=== PATIENT | female | born 1985 | race Caucasian/White ===

== ENCOUNTER 2023-10-09 02:45 | Emergency (ER) | payer BC, SELFPAY ==
--- NOTE | ~2023-10-09 | CT_ITS ---
EXAMINATION: CT abdomen pelvis wo con DATE: 10/09/2023 04:08 INDICATION: Flank pain. TECHNIQUE: Computed tomography (CT) of the abdomen and pelvis was performed without intravenous contr ast. Automated exposure control and iterative reconstruction technique were employed. The dose-length product was 227.50 mGy-cm. COMPARISON: None. FINDINGS: The visualized portions of the lung bases are clear without pneumonia or pleural effusion. The heart size is normal. No pericardial effusion. The liver, gallbladder, spleen, pancreas, and adre nal glands are normal. There is a 3 mm stone in right kidney. There is mild left hydronephrosis and h ydroureter. There is a 3 mm stone in distal left ureter. There are no dilated loops of bowel. The isidra endix is normal. There are no pathologically enlarged lymph nodes. There is no free intraperitoneal f luid. There is a 2.0 cm mixed lytic and sclerotic lesion in the left ischium with endosteal scallopin g. There is moderate lower lumbar spondylosis. IMPRESSION: 1. 3 mm stone in distal left ureter with mild left hydronephrosis and hydroureter. 2. Small nonobstructing right kidney stone. 3. 2.0 cm bone lesion in left ischium, most likely a benign lesion such as aneurysmal bone cyst or fi brous dysplasia. Reviewed, dictated and finalized at location E. ER GRIND TOOL TECHNICIAN IMPRESSION: 1. 3 mm stone in distal left ureter with mild left hydronephrosis and hydrouret er. 2. Small nonobstructing right kidney stone. 3. 2.0 cm bone lesion in left ischium, most likely a benign lesion such as aneu rysmal bone cyst or fibrous dysplasia.
--- NOTE | ~2023-10-09 | US_ITS ---
EXAMINATION: US pelvic complete DATE: 10/09/2023 06:08 INDICATION: Left pelvic pain. TECHNIQUE: Multiple transabdominal sonographic images of the pelvis were obtained. COMPARISON: CT abdomen and pelvis 10/09/2023 FINDINGS: The uterus measures 7.4 x 4.2 x 4.9 cm. There is no free fluid in the pelvis. The endometrial complex measures 15 mm in thickness. The right ovary measures 3.8 x 1.2 x 2.1 cm. The left ovary measures 3. 0 x 2.3 x 2.3 cm. There is normal vascular flow in the ovaries. IMPRESSION: 1. Normal pelvis. Reviewed, dictated and finalized at location E. OR ACCOUNT EXECUTIVE IMPRESSION: 1. Normal pelvis.
[2023-10-09 02:45] VITALS: BP 121/88; PULSE 81; RESP 15; TEMP 36.5; O2SAT 100
[2023-10-09 03:08] LABS: Basophils Percent Auto 0.5 % (0.2-1.2); Eosinophils Absolute Auto 0.1 K/mm3 (0-0.3); Eosinophils Percent Auto 1.1 % (0-4.4); Hematocrit 37.2 % (37.0-47.0); Hemoglobin 12.3 g/dL (12.0-15.0); Immature Granulocyte Absolute 0.01 K/mm3 (0.00-0.031); Immature Granulocyte Percent A 0.2 % (0-0.5); Lymphocytes Absolute Auto 1.73 K/mm3 (0.9-3.2); Mean Corpuscular HGB Conc 33.1 g/dl (32-36); Mean Corpuscular Hemoglobin 28.5 pg (26-34); Mean Corpuscular Volume 86.1 fl (80-100); Mean Platelet Volume 10.3 fl (7.4-10.4); Monocytes Absolute Auto 0.5 K/mm3 (0.1-0.6); Monocytes Percent Auto 7.2 % (2.6-8.5); Neutrophils Absolute Auto 4.3 K/mm3 (1.3-6.7); Platelet Count Result 204 k/mm3 (150-375); Red Blood Count 4.32 M/mm3 (4.2-5.4); Red Cell Distribution Width 13.2 % (11.5-14.5); White Blood Count 6.7 K/mm3 (4.5-10.0)
[2023-10-09 03:20] LABS: Alanine Aminotransferase 18 U/L (6-35); Albumin Level 4.2 g/dL (3.5-5.1); Alkaline Phosphatase 74 U/L (38-126); Anion Gap 8 mmol/L (8-16); Aspartate Amino Transferase 23 U/L (14-36); Bilirubin,Total 0.4 mg/dL (0.2-1.3); Blood Urea Nitrogen 15 mg/dL (7-17); Calcium 9.2 mg/dL (8.4-10.2); Carbon Dioxide 22 mmol/L (22-30); Chloride 106 mmol/L (98-107); Estimated CRCL calculation 78 ml/min; Estimated Glomerular Filt Rate > 60; Glucose 158 mg/dL (65-110); Potassium 3.5 mmol/L (3.4-5.0); Sodium 136 mmol/L (137-145)
[2023-10-09] MEDS: KETOROLAC 15 MG/ML VIAL (*BKC) IV PUSH (03:37)
[2023-10-09] MEDS: SODIUM CHLORIDE 0.9% IV 1,000 ML 999 ML IV CONT (03:37)
--- NOTE | 2023-10-09 03:43 | ED.ABDPAIN ---
HPI - Abdominal Pain General Chief Complaint: Abdominal Pain Stated Complaint: l flank pain Time Seen by Provider: 10/09/23 03:38 Source: patient Limitations: no limitations History of Present Illness HPI narrative: Patient is a 38-year-old female presents to the emergency department complaining of left flank pain. Patient states the pain started around 1:00 a.m. last night, feels like an ache, constant and waxes and wanes, feels like her history of a kidney stone, radiates to her left groin, tried an ibuprofen for the pain with minimal relief. Patient admits to associated nausea. Patient denies chest pain, difficulty breathing, cough, fever, hematuria, diarrhea, melena, hematochezia, recent injuries, recent illness. Patient's her last menstrual period was September 12. Patient denies vaginal discharge or history of sexually transmitted infections. Patient has not noticed anything making her pain better or worse. Patient admits to some mild dysuria. Related Data Allergies Allergy/AdvReac Type Severity Reaction Status Date / Time No Known Allergies Allergy Verified 10/09/23 02:52 Review of Systems Review of Systems: A 10 system review of systems was completed on the patient and is negative except for what is stated in the HPI. Nursing and ancillary documentation was reviewed. PMFSH Comments At time of signature, I have reviewed and agree with nursing past medical, surgical, social and family history unless otherwise noted. Please see the nursing chart for further information. There is no relevant family history pertinent to the presenting complaint. Exam Narrative: CONST: Mild acute distress complaining of left flank pain. Well nourished. Patient became nauseous during the examination began having nonbloody nonbilious scant amount of emesis. HENMT: Head is normocephalic and atraumatic. Moist mucous membranes. No posterior oropharynx erythema. EYES: No conjunctival icterus, injection, or pallor. PERRL. NECK: No meningeal signs. RESP: Able to speak in full sentences. Normal respiratory effort. CTAB. CARDIO: Regular rate. Regular rhythm. 2+ DP and radial pulses bilaterally. GI: Nondistended. No tenderness to palpation. Soft. Negative Hannah sign. No palpable masses or hernias. : No CVA tenderness to palpation. SKIN: No rashes or lesions noted on exposed skin. NEURO: Oriented x3. Moves all extremities. EXTREM/MSK/BACK: No pedal edema. PSYCH: Normal affect. Course Vital Signs Vital signs: Vital Signs Temperature 97.7 F 10/09/23 02:45 Pulse Rate 81 10/09/23 02:45 Respiratory Rate 15 10/09/23 02:45 Blood Pressure 121/88 10/09/23 02:45 Pulse Oximetry 100 10/09/23 02:45 Oxygen Delivery Room Air 10/09/23 02:45 Temperature 97.7 F 10/09/23 02:45 Pulse Rate 81 10/09/23 02:45 Respiratory Rate 15 10/09/23 02:45 Blood Pressure 121/88 10/09/23 02:45 Pulse Oximetry 100 10/09/23 02:45 Oxygen Delivery Room Air 10/09/23 02:45 MDM - Abdominal Pain MDM Narrative Medical decision making narrative: Patient presents with the above complaint. Initial vitals are remarkable for no significant abnormalities. Physical examination as noted above. Plan discussed: Laboratory analysis, CT abdomen pelvis, Toradol 15 mg IV push, 1 L bolus IV fluids, famotidine 20 mg IV push, Zofran 8 mg IV push. patient was subsequently given morphine 6 mg IV push due to persistent pain. Urinalysis with potential infection and patient given ceftriaxone 1 g IV piggyback. On reassessment patient still admits to some persistent discomfort and persistent nausea. Discussed plan to talk with Urology, patient ordered further pain medications. I spoke with Urology on-call who states that keep the patient NPO and admit to his service. Differential Diagnosis Differential diagnosis: Likely calculus of kidney, diverticulitis, pancreatitis and other (UTI, ovarian torsion.) Medical Records Attestation
[2023-10-09 04:14] LABS: Appearance Urine Turbid (Clear); Bilirubin Urine Negative (Negative); Blood Urine 3+ (Negative); Color Urine Dark Yellow (Yellow); Glucose Urine UA Negative (Negative); Ketones Urine 1+ mg/dL (Negative); Leukocyte Esterase Ur Trace LEU/UL (Negative); Nitrate Urine Negative (Negative); Protein Urine 1+ mg/dL (Negative); Specific Grav Ur 1.026 (1.001-1.035); Urobilinogen Urine 0.2 mg/dL (<2.0)
[2023-10-09 04:17] LABS: Bacteria Urine 1+ /hpf; Squamous Epithelial Cell Urine Few /hpf (Few)
[2023-10-09 04:19] LABS: Add Urine Microscopic? YES
[2023-10-09] MEDS: ONDANSETRON INJ 4 MG/2 ML VIAL 8 MG IV PUSH (04:29)
[2023-10-09] MEDS: FAMOTIDINE 20 MG/2 ML VIAL IV PUSH (04:29)
[2023-10-09 04:36] LABS: Lactic Acid Reflex 1.2 mmol/L (0.7-2.0)
[2023-10-09 04:39] LABS: CRP < 0.5 mg/dL (<1.0); Lipase 44 U/L (23-300); Magnesium 1.7 mg/dL (1.6-2.3)
[2023-10-09] MEDS: MORPHINE SULFATE (*CRX) 4 MG/ML INJ 6 MG IV PUSH (05:27)
[2023-10-09 06:55] VITALS: PULSE 80; RESP 19
[2023-10-09 06:56] VITALS: BP 107/85; PULSE 71; PULSE 87; RESP 15; O2SAT 100; O2SAT 98
--- NOTE | 2023-10-09 07:12 | WPDURCON ---
Assessment and Plan Assessment and plan (1) Ureterolithiasis: Code(s): N20.1 - Calculus of ureter Status: Acute Assessment and Plan: 3 mm partially obstructing left distal ureteral calculus without fever or significant leukocytosis. Patient prefers trial outpatient medical expulsive therapy. She was instructed to f/u in ER for intractable pain,n/v or any fever. Otherwise, I'll seen in office for f/u early next week. Urology Consult Note HPI Date Seen: 10/09/23 Primary Care Provider: UNKNOWN,DOCTOR Consult Narrative Narrative: Pat Harrison is a 38 year old female presents to the emergency department with acute left flank pain, nausea and vomiting. She has spontaneously passed 2 ureteral calculi in the past and felt this pain was reminiscent of that. Indeed the CT scan shows a partially obstructing 3 mm left distal ureteral calculus. She denies fevers chills or gross hematuria. We discussed options including admission for hydration / analgesics, endoscopic extraction and medical expulsive therapy at home. She elects for home care with analgesics and tamsulosin. She was instructed to follow-up with pain / nausea vomiting become intractable or she develops any fever. Review of Systems Review of Systems: All systems reviewed & are unremarkable except as noted in HPI and below Cardiovascular: Cardiovascular: Denies chest pain, Denies lightheadedness, Denies palpitations and Denies dyspnea Respiratory: Respiratory: Denies dyspnea Gastrointestinal: Gastrointestinal: Denies diarrhea, Denies nausea and Denies vomiting Genitourinary: Genitourinary: Denies hematuria and Denies dysuria Endocrine: Endocrine: Denies palpitations Meds Home Medications and Allergies Home Medications Medication Instructions Recorded Confirmed Type cephalexin 500 mg capsule 500 mg PO Q6H 7 days #28 caps 10/09/23 Rx ibuprofen 600 mg tablet 600 mg PO Q6H PRN pain #60 tabs 10/09/23 Rx ondansetron 4 mg disintegrating 4 mg PO Q8H PRN nausea and 10/09/23 Rx tablet vomiting #14 tabs tamsulosin 0.4 mg capsule (Flomax) 0.4 mg PO DAILY #14 caps 10/09/23 Rx Allergies Allergy/AdvReac Type Severity Reaction Status Date / Time No Known Allergies Allergy Verified 10/09/23 02:52 Vital Signs Vital Signs - 24 hr 10/09/23 02:45 10/09/23 06:56 Temperature 97.7 F Pulse Rate 81 87 Respiratory Rate 15 15 Blood Pressure 121/88 107/85 Pulse Oximetry 100 100 Oxygen Delivery Room Air Exam Const: General: no acute distress Resp: Effort & Inspection: normal respiratory effort GI: Inspection: non-distended GI Palp: No abdominal tenderness and No Guarding due to palpation present (GI) Auscultation: normal bowel sounds Results Labs 10/09/23 03:00 10/09/23 03:00 Labs: Short CBC 10/09/23 Range/Units 03:00 WBC 6.7 (4.5-10.0) K/mm3 Hgb 12.3 (12.0-15.0) g/dL Hct 37.2 (37.0-47.0) % Plt Count 204 (150-375) k/mm3 BMP 10/09/23 03:00 Sodium 136 L Potassium 3.5 Chloride 106 Carbon Dioxide 22 BUN 15 Creatinine 0.80 Glucose 158 H Calcium 9.2 Liver Function 10/09/23 Range/Units 03:00 Total Bilirubin 0.4 (0.2-1.3) mg/dL AST 23 (14-36) U/L ALT 18 (6-35) U/L Alkaline Phosphatase 74 (38-126) U/L Albumin 4.2 (3.5-5.1) g/dL Urine 10/09/23 Range/Units 03:28 Urine Color Dark yellow (Yellow) Urine Appearance Turbid H (Clear) Urine pH 5.0 (5.0-9.0) Ur Specific Lyndon 1.026 (1.001-1.035) Urine Protein 1+ H (Negative) mg/dL Urine Glucose (UA) Negative (Negative) mg/dL
[2023-10-09 07:25] VITALS: PULSE 74; RESP 15
[2023-10-09] MEDS: TAMSULOSIN HCL 0.4 MG CAPSULE PO (07:30)
== END 2023-10-09 07:48 | disposition home or self-care (01) ==
PROVIDERS: Emergency Provider Student in an Organized Health Care Education/Training Program
DX: N13.2 Hydronephrosis with renal and ureteral calculous obstruction (principal); Z87.442 Personal history of urinary calculi; M89.9 Disorder of bone, unspecified
CPT/HCPCS: 36415; 74176; 76856; 80053; 81001; 81025; 83605; 83690; 83735; 85025; 86140; 87086; 87088; 96365; 96375; 99284; A9270; J0696; J1885; J2270; J2405; J7030